=== PATIENT | female | born 1960 | race Caucasian/White ===

== ENCOUNTER 2023-05-19 16:16 | Inpatient (IN) | payer BC, SELFPAY ==
--- NOTE | 2023-05-19 | ECG_ITS ---
Test Reason : ?STROKE Blood Pressure : / mmHG Vent. Rate : 086 BPM Atrial Rate : 086 BPM P-R Int : 164 ms QRS Dur : 082 ms QT Int : 366 ms P-R-T Axes : 063 018 041 degrees QTc Int : 437 ms Normal sinus rhythm Possible Left atrial enlargement Borderline ECG No previous ECGs available Referred By: Damon Wick Electronically Signed By:TADEO NAYAK MD
--- NOTE | 2023-05-19 | EEG_ITS ---
FINDINGS: Waking background activity consists of a low-voltage 9 to 10 hertz posterior alpha frequency intermixed anteriorly with low voltage fast frequencies. Photic stimulation and hyperventilation are without activation. No sleep stages are identified. No focal, lateralizing, or paroxysmal discharges were seen. IMPRESSION: This waking EEG is within normal limits. MD LUCÍA Trammell/CHIDI / [id number]
--- NOTE | ~2023-05-19 | CT_ITS ---
EXAMINATION: CT HEAD WITHOUT CONTRAST (STROKE PROTOCOL) CLINICAL INFORMATION: Aphasia. COMPARISON: None. TECHNIQUE: Contiguous axial imaging was performed from the skull base to vertex without intravenous administration of contrast. Coronal and sagittal reformatted images are performed at the CT scanner. [This CT examination was performed using dose optimization techniques as appropriate, variously including the following: *Automated exposure control *Adjustment of mA and/or kV according to patient size (this includes techniques or standardized protocols for targeted exams where dose is matched to indication/reason for exam; i.e. extremities or head) *Use of iterative reconstruction technique] DLP: 583 mGy-cm. FINDINGS: There is enlarged and vessel. The left extra-axial space along the sylvian fissure extending into the medial temporal lobe inferiorly. Findings concerning for a vascular lesion. This can be further assessed with pre and post MRI and MRA/MRV brain imaging. No mass effect. No extra-axial collection. No intracranial hemorrhage. No hydrocephalus. There is no osseous abnormality. The mastoid air cells and visualized portions of the paranasal sinuses are well-aerated. CT/CT head for stroke IMPRESSION: 1. No acute intracranial abnormality. 2. Enlarged vessel in the left extra-axial space along the Sylvian fissure extending into the medial temporal lobe inferiorly. Findings concerning for a vascular lesion. This can be further assessed with pre and post MRI and MRA/MRV brain imaging. This critical result was discussed with Dr. Wick at 1656 hours on 05/19/2023. It was ascertained that the content and urgency of the report was understood at the time of direct communication.
--- NOTE | ~2023-05-19 | CT_ITS ---
EXAMINATION: CT CERVICAL SPINE WITHOUT CONTRAST CLINICAL INFORMATION: Trauma. COMPARISON: None available. TECHNIQUE: Axial images obtained through the cervical spine. Coronal and sagittal reformatted images are scattered This CT examination was performed using dose optimization techniques as appropriate, variously including the following: *Automated exposure control *Adjustment of mA and/or kV according to patient size (this includes techniques or standardized protocols for targeted exams where dose is matched to indication/reason for exam; i.e. extremities or head) *Use of iterative reconstruction technique DLP: 459 mGy-cm FINDINGS: No acute abnormality. There is no fracture, no dislocation and no prevertebral soft tissue swelling. Multilevel degenerative spondylosis spine. Cervical disc height narrowing and facet joint arthrosis. There is fusion of the facet joints bilaterally at the C2-C4 disc levels. CT/CT cervical spine wo IV con IMPRESSION: 1. No acute abnormality. 2. Degenerative spondylosis of cervical spine. Fleischner guidelines were followed.
--- NOTE | ~2023-05-19 | XR_ITS ---
EXAMINATION: XR CHEST CLINICAL INFORMATION: SOB COMPARISON: None available. TECHNIQUE: Frontal view of the chest was obtained. FINDINGS: No significant abnormality is noted involving the heart, lungs, mediastinum, bony thorax or soft tissues. XR/XR chest 1V IMPRESSION: Unremarkable chest examination.
--- NOTE | ~2023-05-19 | CT_ITS ---
EXAMINATION: CT ANGIOGRAM HEAD CT ANGIOGRAM NECK CLINICAL INFORMATION: Left hemispheric arteriovenous malformation. COMPARISON: CT head and cervical spine from 05/19/2023. TECHNIQUE: Initial noncontrast branch credit counselor imaging of the head and neck was performed. Comparison is made with noncontrast head CT from earlier today. Test bolus sequences followed by intravenous administration 70 mL of Omnipaque 350. Helical imaging was performed in the axial plane from the aortic arch to the skull vertex. Delayed postcontrast imaging of the head was also performed. The data was processed at the lab technologist's workstation for generation of MIP sequences. Angled MIPs and volume rendered reformatted images were also generated at an offline 3D workstation. Stenoses are assessed in accordance with NASCET criteria unless otherwise indicated. This CT examination was performed using dose optimization techniques as appropriate, variously including the following: *Automated exposure control. *Adjustment of mA and/or kV according to patient size (this includes techniques or standardized protocols for targeted exams where dose is matched to indication/reason for exam; i.e. extremities or head). *Use of iterative reconstruction technique. DLP: 1342 mGy-cm FINDINGS: CT Head: There is a tangle of irregular vasculature centered on the anterior left mesial temporal lobe and deep nuclei, measuring approximately 2.7 x 2.9 x 1.9 cm. The nidus appears largely to be fed by branches of the left posterior communicating artery and potentially the left MCA. Irregular ectatic venous structures within this nidus, measure up to 1.2 cm in diameter. Ectatic draining venous structures are noted in the suprasellar cistern and along the left cerebral hemisphere. There is no evidence of acute intracranial hemorrhage or edematous territorial infarction. Woodruff-white matter differentiation is preserved. A few foci of hypoattenuation in the periventricular and deep white matter are consistent with mild microangiopathy. The ventricles are normal in morphology and size. No evidence for obstructive hydrocephalus. No abnormal mass effect or midline shift. No extra-axial fluid collections. No pathologic intra-axial enhancement or regional oligemia. No acute soft tissue or osseous abnormalities. Moderate mucosal thickening of the paranasal sinuses. Moderate leftward nasal septal deviation with spurring. The mastoid air cells and middle ear cavities are clear. Multifocal odontogenic enamel erosions. CT Neck: There is a 0.4 cm hyperattenuating nodule in the right thyroid lobe (no follow-up imaging recommended based on current guidelines at the time of examination). The remaining cervical soft tissues are within normal limits. Straightening of the normal cervical lordosis. Ankylosis of C2-C4. Mild degenerative anterolisthesis of C3 on C4. Advanced degenerative disc disease from C4-C7. Facet and uncovertebral joint arthropathy leads to osseous encroachment on the neural foramina from C3-C7. CT Upper Chest: The visualized lung apices and upper mediastinum are within normal limits. Neck CTA: Aortic Arch: Normal contour and caliber. Classic 3 vessel branching pattern of the aortic arch. Great Vessel Origins: No significant stenosis of the branch origins. Right Common Carotid Artery: No focal stenosis or occlusion. Cervical Right Internal Carotid Artery: Normal opacification without focal stenosis or occlusion. Left Common Carotid Artery: No focal stenosis or occlusion. Cervical Left Internal Carotid Artery: Normal opacification without focal stenosis or occlusion. Cervical Right Vertebral Artery: Co-dominant. No focal stenosis or occlusion. Cervical Left Vertebral Artery: Co-dominant. No focal stenosis or occlusion. Brain CTA: Intracranial Internal Carotid Arteries: No focal stenosis or occlusion. Right Anterior Cerebral Artery: Normal A1 segment. Normal opacification of the distal CARLOS segments. Left Anterior Cerebral Artery: The A1 segment is diminutive. Normal opacification of the distal CARLOS segments. Anterior Communicating Artery: Normal. Right Middle Cerebral Artery: Normal M1 segment of the MCA without focal stenosis or occlusion. Normal arborization of the distal segments. Left Middle Cerebral Artery: Normal M1 segment of the MCA without focal stenosis or occlusion. Normal arborization of the distal segments. Right Vertebral Artery: Normal V4 segment. Normal opacification of the proximal segments of the posterior inferior cerebellar artery. Left Vertebral Artery: Normal V4 segment. Normal opacification of the proximal segments of the posterior inferior cerebellar artery. Basilar Artery: Normal without focal stenosis or occlusion. Normal appearance of the proximal superior cerebellar arteries. Right Posterior Cerebral Artery: Normal P1 segment. Normal opacification of the distal HEEL SORTER segments. Left Posterior Cerebral Artery: Normal P1 segment. Prominent posterior communicating artery with branch vessels that appear to feed the aforementioned left-sided AVM. Normal opacification of the distal HEEL SORTER segments. Normal opacification of the superior sagittal, straight, transverse, and sigmoid sinuses. Ectasia of the left superior ophthalmic vein. CT/CT angio head neck IMPRESSION: 1. There is a prominent arteriovenous malformation centered on the anterior left temporal lobe and deep nuclei with nidus measuring up to 2.9 cm. The nidus appears largely to be fed by branches of the left posterior communicating artery and potentially the left MCA. Irregular ectatic venous structures within this nidus measure up to 1.2 cm in diameter. 2. No evidence of acute intracranial hemorrhage or edematous territorial infarction. Mild underlying microangiopathy. 3. CTA of the head and neck without proximal occlusion or flow-limiting stenosis.
--- NOTE | 2023-05-19 16:26 | ED.NEUROSD ---
HPI - Neuro Symptoms/Deficit General Chief Complaint: Stroke Stated Complaint: SEIZURE, STROKE ALERT Time Seen by Provider: 05/19/23 16:23 Source: EMS Mode of arrival: EMS Limitations: altered mental status History of Present Illness HPI Narrative: This is 62 years old female brought in by ambulance with altered mental status, per ambulance personnel the patient was at [employer] and she had witnessed seizure and became confused and post ictal. Patient arrives awake and alert, with a C-collar. Postictal she is unable to give any history we had no prior record of this patient at [facility], no family members available at this time Onset (ago): hour(s) (1) Location: speech Relieving factors: none Related Data Home Medications Medication Instructions Recorded Confirmed No Known Home Meds 05/19/23 05/19/23 Allergies Allergy/AdvReac Type Severity Reaction Status Date / Time Unable to Assess Allergy Verified 05/19/23 16:23 Review of Systems Review of Systems: Yes Unobtainable due to [facility] condition [facility] Past [facility] History [facility] Narrative: unknown PMX Social History Social History Alcohol intake: never Smoked in Last 30 Days: No Use of substances other than those prescribed or required for medical reasons: No Advance Directives: No Advance Directives Information Provided: Yes Patient : No Physical Exam Vital Signs: Vital Signs: Last Vital Signs Temp 98.4 F 05/19/23 16:52 Pulse 79 05/19/23 18:08 Resp 20 05/19/23 18:08 BP 141/68 H 05/19/23 18:08 Pulse Ox 97 05/19/23 18:08 O2 Del Method Room Air 05/19/23 18:08 BMI result Body Mass Index 24.4 She is awake alert in not acute distress Const: General: comfortable, no acute distress, well developed and awake Nutritional Appearance: average body habitus Orientation/consciousness: Other orientation findings (She is disoriented to place and time) HEENT: Head: Yes normal to inspection General nose exam: Normal external nose present Face and sinus: Yes normal facial exam Mouth: Normal oral and palatal mucosa present Neck: Neck: Yes normal visual inspection, Yes full ROM and Yes no lymphadenopathy Chest: Chest palpation & inspection: normal inspection of the chest Resp: Effort & Inspection: normal respiratory effort Auscultation: clear to auscultation bilaterally Cardio: Jugular venous distension: no JVD Rate: regular rate Rhythm: regular rhythm GI: Inspection: Yes normal to inspection Palpation (GI): Soft to palpation, not firm, nontender and no guarding Percussion: Yes normal to percussion Auscultation: normal bowel sounds Skin: General skin exam: no rashes or lesions noted Lesions: no lesions Rashes: no rashes Neuro: Other: Awake and alert him will the extremity speech is clear she is disoriented x3 General: moves all extremities Course Reevaluation(s) Reevaluation #1: more awake alert,spoke with sister Tatiana who inform me that the pt had hx of cerebral aneurism at 17 yo Reevaluation #2: Spoke with Neurologist Dr Bazan Time: 17:40 Medications Administered Discontinued Medications Generic Name Dose Route Start Last Admin Trade Name Freq PRN Reason Stop Dose Admin Sodium Chloride 1,000 mls @ 999 mls/hr 05/19/23 16:30 05/19/23 17:57 Ns IVCONT 05/19/23 17:30 Infused .Q1H1M NELSON Infusion Levetiracetam 1,500 mg 05/19/23 18:00 05/19/23 18:12 Levetiracetam In Nacl (Iso-Os) 1,500 Mg/100 Ml Piggyback IV 05/19/23 18:01 1,500 mg ONCE ONE Administration Medical Decision Making Medical Decision Making [facility] Narrative: Patient presented with altered mental status a witnessed seizure most likely this is a postictal status she is cleaning up at this point will do a head CT labs and reassess Differential Diagnosis Differential Diagnoses: The differential diagnosis associated with the presentation includes CVA/seizure/intracranial bleed Admission/Observation Consideration of admission/observation: Escalation of care including admission/observation considered Consult Healthcare Provider Management of the patient was discussed with: Hospitalist and Food Service Spoke with neurologist Dr Bazan Lab Data [facility] Lab Attestation statement: I reviewed the patient's lab results. 05/19/23 16:38 05/19/23 16:38 Labs: Lab Results 05/19/23 05/19/23 05/19/23 Range/Units 16:36 16:38 16:38 WBC 7.8 (4.8-10.8) X10*3/uL RBC 4.27 (4.20-5.50) X10*6/uL Hgb 12.4 (12.0-16.0) g/dl Hct 36.8 L (37.0-47.0) % MCV 86.2 (80.0-98.0) fL MCH 29.0 (27.0-33.0) pg MCHC 33.7 (31.0-35.0) g/dl RDW 13.2 (11.0-16.0) % Plt Count 235 (160-400) X10*3/uL MPV 10.1 (9.4-12.3) fL Immature Gran % (Auto) 0.1 (0.0-0.4) % Neut % (Auto) 78.6 H (45-73) % Lymph % (Auto) 16.0 L (20-40) % [place] % (Auto) 4.7 (2-11) % Eos % (Auto) 0.1 (0-4) % Baso % (Auto) 0.5 (0-2) % Lymph # (Auto) 1.3 (1.2-4.9) X10*3/uL [place] # (Auto) 0.4 (0.1-1.2) X10*3/uL Eos # (Auto) 0.0 (0.0-0.4) X10*3/uL Baso # (Auto) 0.0 (0.0-0.2) X10*3/uL Abs Immat Gran (auto) 0.01 (0.00-0.03) X10*3/uL Absolute Neuts (auto) 6.2 (2.0-8.3) x10*3/uL Absolute Nucleated RBC 0.000 (0.0-0.012) X10*3/uL Nucleated RBC % (auto) 0.0 (0.0-0.2) /100WBC PT (10.0-13.1) SEC Whole Blood PT 13.5 (11.1-13.5) sec INR (0.9-1.1) Whole Blood INR 1.1 (0.9-1.1) APTT (26.0-36.4) SEC Sodium 138 (135-145) mmol/L Potassium 3.9 (3.3-5.1) mmol/L Chloride 104 (96-108) mmol/L Carbon Dioxide 26 (22-29) mmol/L Anion Gap 12 (12-20) BUN 25 H (9-16) mg/dL Creatinine 0.89 (0.5-1.4) mg/dL Estim Creat Clear Calc 65.2 Estimated GFR > 60 POC Glucose (60-115) mg/dL Random Glucose 117 H (60-115) mg/dL Calcium 9.3 (8.4-10.2) mg/dL Total Bilirubin 0.4 (0.0-1.0) mg/dL AST 24 (5-31) U/L ALT 17 (0-31) U/L Alkaline Phosphatase 85 (39-117) U/L Troponin I High Sens (<3.5-17.0) ng/L Total Protein 7.2 (6.5-8.0) g/dL Albumin 4.0 (3.5-5.0) g/dL Ethyl Alcohol < 10 mg/dL 05/19/23 05/19/23 05/19/23 Range/Units 16:38 16:38 16:47 WBC (4.8-10.8) X10*3/uL RBC (4.20-5.50) X10*6/uL Hgb (12.0-16.0) g/dl Hct (37.0-47.0) % MCV (80.0-98.0) fL MCH (27.0-33.0) pg MCHC (31.0-35.0) g/dl RDW (11.0-16.0) % Plt Count (160-400) X10*3/uL MPV (9.4-12.3) fL Immature Gran % (Auto) (0.0-0.4) % Neut % (Auto) (45-73) % Lymph % (Auto) (20-40) % [place] % (Auto) (2-11) % Eos % (Auto) (0-4) % Baso % (Auto) (0-2) % Lymph # (Auto) (1.2-4.9) X10*3/uL [place] # (Auto) (0.1-1.2) X10*3/uL Eos # (Auto) (0.0-0.4) X10*3/uL Baso # (Auto) (0.0-0.2) X10*3/uL Abs Immat Gran (auto) (0.00-0.03) X10*3/uL Absolute Neuts (auto) (2.0-8.3) x10*3/uL Absolute Nucleated RBC (0.0-0.012) X10*3/uL Nucleated RBC % (auto) (0.0-0.2) /100WBC PT 11.3 (10.0-13.1) SEC Whole Blood PT (11.1-13.5) sec INR 1.0 (0.9-1.1) Whole Blood INR (0.9-1.1) APTT 26.6 (26.0-36.4) SEC Sodium (135-145) mmol/L Potassium (3.3-5.1) mmol/L Chloride (96-108) mmol/L Carbon Dioxide (22-29) mmol/L Anion Gap (12-20) BUN (9-16) mg/dL Creatinine (0.5-1.4) mg/dL Estim Creat Clear Calc Estimated GFR POC Glucose 105 (60-115) mg/dL Random Glucose (60-115) mg/dL Calcium (8.4-10.2) mg/dL Total Bilirubin (0.0-1.0) mg/dL AST (5-31) U/L ALT (0-31) U/L Alkaline Phosphatase (39-117) U/L Troponin I High Sens 4.1 (<3.5-17.0) ng/L Total Protein (6.5-8.0) g/dL Albumin (3.5-5.0) g/dL Ethyl Alcohol mg/dL Independent Interpretation I performed an independent interpretation of an: CT Scan Interpretation: I reviewed interpreted the CT scan of the head as well Radiology Impression Discussion of test interpretation with radiology: I have reviewed the radiologist's reading. Independent Historian Clinical information obtained from an independent historian. History obtained from or confirmed by: Other (sister Tatiana) Tests considered The following testing was considered but not selected: MRI Critical Care Time Critical Care Time Critical Care Time: Yes Total Critical Care Time: 60 Attestation: Taking care of the patient, speaking with EMS pre-hospital and at arrival, speaking with the radiologist, speaking neurologist speaking with hospitalist and family members Discharge Plan Discharge Clinical Impression: Seizure Patient Disposition: Admitted As Inpatient
[2023-05-19 16:41] VITALS: BP 121/50; PULSE 100; O2SAT 94; BMI 24.4
[2023-05-19 16:46] LABS: MANUAL DIFF FLAG NO
[2023-05-19 16:50] LABS: Basophils Percent Auto 0.5 % (0-2); Eosinophils Percent Auto 0.1 % (0-4); Hematocrit 36.8 % (37.0-47.0); Hemoglobin 12.4 g/dl (12.0-16.0); Imm Gran Abs Auto 0.01 X10*3/uL (0.00-0.03); Imm Gran Pct Auto 0.1 % (0.0-0.4); Lymphocytes Absolute Auto 1.3 X10*3/uL (1.2-4.9); Mean Corpuscular HGB Conc 33.7 g/dl (31.0-35.0); Mean Corpuscular Volume 86.2 fL (80.0-98.0); Mean Platelet Volume 10.1 fL (9.4-12.3); Monocytes Absolute Auto 0.4 X10*3/uL (0.1-1.2); Monocytes Percent Auto 4.7 % (2-11); Neutrophils Absolute Auto 6.2 x10*3/uL (2.0-8.3); Neutrophils Percent Auto 78.6 % (45-73); Platelet Count 235 X10*3/uL (160-400); Red Blood Count 4.27 X10*6/uL (4.20-5.50); Red Cell Distribution Width 13.2 % (11.0-16.0); White Blood Count 7.8 X10*3/uL (4.8-10.8)
[2023-05-19 16:51] LABS: Glucose, Whole Blood 105 mg/dL (60-115)
[2023-05-19 16:52] VITALS: BP 120/73; PULSE 89; RESP 23; TEMP 36.9; O2SAT 94
[2023-05-19 16:53] LABS: Prothrombin Time Whole Bld POC 13.5 sec (11.1-13.5); ~PT, ~INR - Anti Coag Clinic 1.1 (0.9-1.1)
[2023-05-19] MEDS: 0.9 % Sodium Chloride 1,000 ML 999 ML IVCONT (16:54)
[2023-05-19 16:59] LABS: Prothrombin Time 11.3 SEC (10.0-13.1)
[2023-05-19 17:02] LABS: Partial Thromboplastin Time 26.6 SEC (26.0-36.4)
[2023-05-19 17:11] LABS: Troponin-I High Sensitivity 4.1 ng/L (<3.5-17.0)
[2023-05-19 17:15] LABS: Alanine Aminotransferase 17 U/L (0-31); Alkaline Phosphatase 85 U/L (39-117); Anion Gap 12 (12-20); Aspartate Amino Transferase 24 U/L (5-31); Bilirubin Total 0.4 mg/dL (0.0-1.0); Blood Urea Nitrogen 25 mg/dL (9-16); Calcium 9.3 mg/dL (8.4-10.2); Carbon Dioxide 26 mmol/L (22-29); Chloride 104 mmol/L (96-108); Creatinine Clr Calc Pharmacy 65.2; Estimated Glomerular Filt Rate > 60; Ethanol < 10 mg/dL; Glucose Random 117 mg/dL (60-115); Potassium 3.9 mmol/L (3.3-5.1); Sodium 138 mmol/L (135-145); Total Protein 7.2 g/dL (6.5-8.0)
--- NOTE | 2023-05-19 17:56 | P.HPHOSP_ITS ---
Agree with the findings assessment and plan of MAKAYLA. no onset seizure, started on Keppra . Neurology consulted History of Present Illness Date of Service: 05/19/23 Attending physician on admission: Alice Irving Chief Complaint: New onset seizure Pt is a 62-year-old female with a PMH significant for?cerebral hemorrhage at 17 years old who presents to the ED after a witnessed seizure. Pt was at [employer] when had the witnessed seizure. Pt states she may have had some li ghtheadedness but no other prodromal symptoms. Pt was post-ictal but currently back to baseline. States she feels well with no complaints. Denies headache, vision changes. No myalgias, musculoskeletal pain, tongue bite. Patient denies chest pain/pressure, palpitations. No shortness of breath. Denies fever, chills, nausea, vomiting, diarrhea, abdominal pain. Patient apparently has no other significant PMH besides her cerebral hemorrhage at age 17. Was in the hospital for 1 and half weeks then, hemorrhage was apparently so deep that no surgical intervention was indicated at that time. Patient with no additional PMH, not on any home medications. However patient states she has not seen a primary care and over 30 years. Patient denies a history of smoking, drinking, or illicit drug use. In the ED patient was afebrile but tachypneic up to 23. Labs were grossly unremarkable. Electrolytes WNL. Renal function WNL. Hepatic function WNL. Troponin 4.1. Random glucose 117. Ethyl alcohol <10. CXR showed no acute cardiopulmonary process. CT?of head demonstrated no acute acute cranial abnormality but showed enlarged vessel in the left extra-axial space along the Sylvian fissure concerning for a vascular lesion that could be further assessed with MRI. CT of cervical spine found no acute abnormality but showed degenerative spondylolysis. Pt was treated with the the Keppra 1500 mg and IVF. Pt will be admitted to the hospital under observation on telemetry for treatment and workup of new onset seizure. Review of Systems Review of Systems: New onset seizure Prodrome of lightheadedness Patient with no other acute medical complaints Yes all other systems are reviewed and are negative PMFSH Social History Alcohol intake: never Smoked in Last 30 Days: No Use of substances other than those prescribed or required for medical reasons: No Advance Directives: No Advance Directives Information Provided: Yes Patient : No Meds Allergies Allergy/AdvReac Type Severity Reaction Status Date / Time Unable to Assess Allergy Verified 05/19/23 16:23 Active Medications: Current Medications Pharmacy Consult (Consult Rx Perform Med Rec) 1 each MISCELLANE ONCE PRN PRN Reason: Consult order Home Medications Medication Instructions Recorded Confirmed Last Taken Type No Known Home Meds 05/19/23 05/19/23 Unknown History Physical Exam Vital Signs and Narrative: Vital Signs: Last Vital Signs Temp 98.4 F 05/19/23 16:52 Pulse 89 05/19/23 16:52 Resp 23 H 05/19/23 16:52 BP 120/73 05/19/23 16:52 Pulse Ox 94 05/19/23 16:52 O2 Del Method Room Air 05/19/23 16:52 BMI result Body Mass Index 24.4 Constitutional: Alert, in no acute distress. Mental Status: Oriented to person, place and time. Eyes: Pupils are equal, round, and reactive to light. Ear, Nose, and Throat: Oropharynx clear, mucous membranes moist. Ears and nose without deformities. Trachea midline. Respiratory: Clear to auscultation bilaterally. No wheezing, rales, or rhonchi. Cardiovascular: S1, S2 regular. No murmurs, rubs, or gallops. Gastrointestinal: Abdomen soft, non-tender, non-distended. Normal bowel sounds. Neurologic: Cranial nerves II-XII are grossly intact bilaterally. No focal neurological deficits. Moves all extremities spontaneously. Skin: No rashes or lesions noted. Musculoskeletal: No cyanosis or clubbing. Extremities: No edema. Psychiatric: Normal mood and affect. Results Labs 05/19/23 16:38 05/19/23 16:38 Labs: Laboratory Results - last 24 hr 05/19/23 05/19/23 05/19/23 16:36 16:38 16:38 MCV 86.2 MCH 29.0 MCHC 33.7 RDW 13.2 Plt Count 235 MPV 10.1 Immature Gran % (Auto) 0.1 Neut % (Auto) 78.6 H Lymph % (Auto) 16.0 L [place] % (Auto) 4.7 Eos % (Auto) 0.1 Baso % (Auto) 0.5 Lymph # (Auto) 1.3 [place] # (Auto) 0.4 Eos # (Auto) 0.0 Baso # (Auto) 0.0 Abs Immat Gran (auto) 0.01 Absolute Neuts (auto) 6.2 Absolute Nucleated RBC 0.000 Nucleated RBC % (auto) 0.0 PT Whole Blood PT 13.5 INR Whole Blood INR 1.1 APTT Anion Gap 12 Estim Creat Clear Calc 65.2 Estimated GFR > 60 POC Glucose Random Glucose 117 H Calcium 9.3 Total Bilirubin 0.4 AST 24 ALT 17 Alkaline Phosphatase 85 Troponin I High Sens Total Protein 7.2 Albumin 4.0 Ethyl Alcohol < 10 05/19/23 05/19/23 05/19/23 16:38 16:38 16:47 MCV MCH MCHC RDW Plt Count MPV Immature Gran % (Auto) Neut % (Auto) Lymph % (Auto) [place] % (Auto) Eos % (Auto) Baso % (Auto) Lymph # (Auto) [place] # (Auto) Eos # (Auto) Baso # (Auto) Abs Immat Gran (auto) Absolute Neuts (auto) Absolute Nucleated RBC Nucleated RBC % (auto) PT 11.3 Whole Blood PT INR 1.0 Whole Blood INR APTT 26.6 Anion Gap Estim Creat Clear Calc Estimated GFR POC Glucose 105 Random Glucose Calcium Total Bilirubin AST ALT Alkaline Phosphatase Troponin I High Sens 4.1 Total Protein Albumin Ethyl Alcohol Imaging Radiologist's Impressions: Impressions Head CT 05/19/23 16:27 IMPRESSION: 1. No acute intracranial abnormality. 2. Enlarged vessel in the left extra-axial space along the Sylvian fissure extending into the medial temporal lobe inferiorly. Findings concerning for a vascular lesion. This can be further assessed with pre and post MRI and MRA/MRV brain imaging. This critical result was discussed with Dr. Wick at 1656 hours on 05/19/2023. It was ascertained that the content and urgency of the report was understood at the time of direct communication. Cervical Spine CT 05/19/23 16:39 IMPRESSION: 1. No acute abnormality. 2. Degenerative spondylosis of cervical spine. Fleischner guidelines were followed. Assessment and Plan (1) Seizure: Status: Acute (2) Abnormal CT of brain: Status: Acute Plan Pt is a 62-year-old female with a PMH significant for?cerebral hemorrhage at 17 years old who presents to the ED after a witnessed seizure. Pt was at [employer] when had the witnessed seizure. Pt states she may have had some lightheadedness but no other prodromal symptoms. Pt was post-ictal but currently back to baseline. States she feels well with no complaints. Pt will be admitted to the hospital under observation on telemetry for treatment and workup of new onset seizure. New onset seizure Patient with history of cerebral hemorrhage at 17 years of age, no intervention taken at that time Patient not on any home medications, no history of seizures, electrolytes normal, POC 105 CT of head negative for acute intracranial pathology, did find enlarged vessel in the left extra-axial space concerning for vascular lesion Patient was loaded with 1500 mg of Keppra in the ED Will give Keppra 500 mg b.i.d. Will get EEG Will get MRI of brain w/wo contrast Check magnesium, urine tox screen Neurology consult Seizure and aspiration precautions Monitor on telemetry Full Code Attending:?Dr. Irving DVT Prophylaxis: Pt ambulatory Pt will be admitted to the hospital under observation on telemetry for treatment and further evaluation of new onset seizure. Time Spent With Patient Time: Total time managing care of this patient today ____ minutes. Quality Stroke Does the patient have a stroke diagnosis?: No VTE Prior VTE?: No VTE Risk Level:: Medical - moderate - high VTE Device Contraindication: Treatment Not Indicated VTE Drug Contraindication: Treatment Not Indicated
[2023-05-19 18:08] VITALS: BP 141/68; PULSE 79; RESP 20; O2SAT 97
--- NOTE | 2023-05-19 18:08 | PHA.MEDREC ---
Pharmacy Consult ? Medication Reconciliation Pharmacy has completed the medication reconciliation. Spoke to patient's sister Tatiana to confirm meds. Patient takes no meds.
[2023-05-19] MEDS: levETIRAcetam in NaCl (iso-os) 1,500 MG/100 ML PIGGYBACK 1500 MG IV (18:12)
[2023-05-19 19:44] VITALS: BP 132/72; PULSE 78; RESP 20; TEMP 37; O2SAT 97
--- NOTE | 2023-05-19 19:47 | PC.NURSE ---
Assumed care for pt. Pt aox4 resting at the bedside. No apparent distress noted. VSS. Passed nursing swallow screen with no complications or difficulty. No aspiration noted. Family at bedside. Pending admit orders. Pt aware of plan of care.
--- NOTE | 2023-05-19 19:49 | PC.NURSE ---
Pt is unable to provide a urine sample at this time.
[2023-05-19 19:57] LABS: Magnesium 2.1 mg/dL (1.6-2.6)
--- NOTE | 2023-05-19 21:03 | PC.NURSE ---
Pt able to ambulate to the restroom with no difficulty and a steady gait. Urine sample provided and sent.
[2023-05-19 21:19] LABS: Amphetamine Screen Urine Not Detected (Not Detect); Barbiturates, Urine Not Detected (Not Detect); Benzodiazepines Screen Urine Not Detected (Not Detect); Cannabinoid Screen Urine Not Detected (Not Detect); Cocaine Screen Urine Not Detected (Not Detect); Fentanyl, urine Not Detected (Not Detect); Opiate Screen Urine Not Detected (Not Detect); Phencyclidine Screen Urine Not Detected (Not Detect)
--- NOTE | 2023-05-19 21:19 | PC.NURSE ---
MRI form completed and faxed to MRI dept.
[2023-05-20] VITALS (7 sets, daily range): BP systolic 117–138; BP diastolic 63–79; PULSE 57–69; RESP 14–20; TEMP 36.1–36.8; O2SAT 94–98; BMI 23.5
--- NOTE | 2023-05-20 00:12 | PC.NURSE ---
Nursing report given to HARVINDER Horvath. Pt being transferred to [facility] and aware of plan of care.
[2023-05-20] MEDS: 0.9 % Sodium Chloride Flush 3 ML SYRINGE IVFLUSH ×3 (01:01→14:48)
--- NOTE | 2023-05-20 06:41 | PC.NURSE ---
Pt admitted from ED via stretcher. Standby assist to bed. A&Ox4, cooperative with care. Seizure precautions in place. NSR on hospital monitor. Bed alarm on. Call amaya within reach.
[2023-05-20] MEDS: levETIRAcetam 500 MG TABLET PO ×2 (08:41→20:53)
--- NOTE | 2023-05-20 09:24 | MHC.CM.PN ---
SAMI 05/20/23, EMR REVIEWED, PT W/NEW ONSET SEIZURE, CM MET W/PT WHO REPORTS SHE LIVES W/HER BROTHER, IS INDEP W/ALL CARE, DENIES USE OF DME/HOME SERVICES AND DENIES NEED. PT VERIFIES SHE DOES NOT HAVE A PCP AND DECLINES ASSISTANCE W/FINDING A PCP AND SETTING UP A FIRST APPT, PT STATES, MY SISTER HAS SOMEONE I CAN SEE . PT VERIFIES MODERNA X3 AND HCP IS SISTER ADRIAN CLEMENTS [phone], COPY REQUESTED. ANTIC D/C HOME NO SERVICES W/SISTER ADRIAN FOR TRANSPORT
--- NOTE | 2023-05-20 10:44 | P.CNNE_ITS ---
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 She did not have any recollection stating that she found herself down on the floor with people around her. She said that many years ago she was treated for intracerebral hemorrhage in had similar episode. She denied drinking alcohol, or use of any illicit drug, or starting any new medicine. She was not under stress. Review of Systems Review of Systems: No recent headache or cold or flu-like illness PMFSH Social History Social History Alcohol intake: never Patient Tobacco Use Status: Never used Tobacco Smoked in Last 30 Days: No Use of substances other than those prescribed or required for medical reasons: No Advance Directives: No Advance Directives Information Provided: Yes Nutrition Risks: No Nutritional Risk Patient : No service: No Meds Allergies Allergy/AdvReac Type Severity Reaction Status Date / Time Unable to Assess Allergy Verified 05/19/23 16:23 Active Medications: Current Medications Acetaminophen (Acetaminophen 325 Mg Tablet) 650 mg PO Q6H PRN PRN Reason: Pain, Mild (Pain Scale 1-3) Docusate Sodium (Docusate Sodium 100 Mg Capsule) 100 mg PO DAILY PRN PRN Reason: Constipation Levetiracetam (Levetiracetam 500 Mg Tablet) 500 mg PO BID [facility] Last Admin: 05/20/23 08:41 Dose: 500 mg Ondansetron HCl (Ondansetron Hcl 4 Mg/2 Ml Vial) 4 mg IVPUSH Q8H PRN PRN Reason: Nausea and Vomiting Pharmacy Consult (Consult Rx Perform Med Rec) 1 each MISCELLANE ONCE PRN PRN Reason: Consult order Sodium Chloride (0.9 % Sodium Chloride Flush 3 Ml Syringe) 3 ml IVFLUSH QSHIFT [facility] Last Admin: 05/20/23 08:41 Dose: 3 ml Home Medications Medication Instructions Recorded Confirmed Last Taken Type No Known Home Meds 05/19/23 05/19/23 Unknown History Physical Exam Vital Signs: Vital Signs: Last Vital Signs Temp 97.0 F 05/20/23 07:49 Pulse 58 05/20/23 07:49 Resp 20 05/20/23 07:49 BP 123/69 05/20/23 07:49 Pulse Ox 94 05/20/23 07:49 O2 Del Method Room Air 05/20/23 07:49 BMI result Body Mass Index 23.5 Neuro: Other: she is alert and awake, distraught, almost tearful, with normal spontaneity and fluency of speech and comprehension. Face is symmetrical. Visual gambino are full. There is no focal weakness. Deep tendon reflexes are trace to absent with flexor plantars. Results Labs 05/19/23 16:38 05/19/23 16:38 Labs: Short CBC 05/19/23 Range/Units 16:38 WBC 7.8 (4.8-10.8) X10*3/uL Hgb 12.4 (12.0-16.0) g/dl Hct 36.8 L (37.0-47.0) % Plt Count 235 (160-400) X10*3/uL BMP 05/19/23 16:38 Sodium 138 Potassium 3.9 Chloride 104 Carbon Dioxide 26 BUN 25 H Creatinine 0.89 Calcium 9.3 Liver Function 05/19/23 Range/Units 16:38 Total Bilirubin 0.4 (0.0-1.0) mg/dL AST 24 (5-31) U/L ALT 17 (0-31) U/L Alkaline Phosphatase 85 (39-117) U/L Albumin 4.0 (3.5-5.0) g/dL Noncontrast head CT revealed a left hemispheric lesion suggestive of AVM. Assessment and Plan (1) Seizure: Status: Acute 62 years old woman who has a left hemispheric AVM and probably related gen eralized seizure. At this time she had no recollection of this event and was somewhat postictal. My recommendation is to treat her with levetiracetam 500 mg twice a day and obtain as CTA of brain to define this vascular lesion. She should be advised to not drive and not be involved in activity that could put her life in danger such as swimming alone or sitting in soaking tub alone. Otherwise, once she would be taking medicine regular basis, she could work in her line of work. Time Spent With Patient Time: Total time managing care of this patient today ____ minutes. Procedures Date of Service Date of Service: 05/20/23
--- NOTE | 2023-05-20 14:21 | HO.PM.IMPN ---
Subjective Subjective Date of Service: 05/20/23 Interval History: Patient resting in bed, awake alert, offers no acute complaints, no recurrent seizures since admission, denies weakness no headache,no dizziness, no visual symptoms, denies nausea vomiting, no urinary symptoms of urgency or frequency. Review of Systems All other system reviewed and negative. Physical Exam Vital Signs: Vital Signs: Last Vital Signs Temp 97.7 F 05/20/23 11:39 Pulse 69 05/20/23 11:39 Resp 20 05/20/23 11:39 BP 138/69 05/20/23 11:39 Pulse Ox 98 05/20/23 11:39 O2 Del Method Room Air 05/20/23 11:39 BMI result Body Mass Index 23.5 Const: Other: General resting comfortably in no acute distress. Neck supple no JVD. CVS regular rate rhythm, Respiratory lungs clear to auscultation, no respiratory distress, no wheeze, no rhonchi. Gastrointestinal abdomen soft, nontender, bowel sounds audible, no guarding , no rigidity. Extremities no edema. Neuro nonfocal . Skin no rash Psych appropriate affect. Objective Data Active Medications Acetaminophen (Acetaminophen 325 Mg Tablet) 650 mg PO Q6H PRN PRN Reason: Pain, Mild (Pain Scale 1-3) Docusate Sodium (Docusate Sodium 100 Mg Capsule) 100 mg PO DAILY PRN PRN Reason: Constipation Levetiracetam (Levetiracetam 500 Mg Tablet) 500 mg PO BID [facility] Last Admin: 05/20/23 08:41 Dose: 500 mg Documented By: OLEG Ondansetron HCl (Ondansetron Hcl 4 Mg/2 Ml Vial) 4 mg IVPUSH Q8H PRN PRN Reason: Nausea and Vomiting Pharmacy Consult (Consult Rx Perform Med Rec) 1 each MISCELLANE ONCE PRN PRN Reason: Consult order Sodium Chloride (0.9 % Sodium Chloride Flush 3 Ml Syringe) 3 ml IVFLUSH QSHIFT [facility] Last Admin: 05/20/23 08:41 Dose: 3 ml Documented By: OLEG Labs 05/19/23 16:38 05/19/23 16:38 Labs: Laboratory Results - last 24 hr 05/19/23 05/19/23 05/19/23 16:36 16:38 16:38 MCV 86.2 MCH 29.0 MCHC 33.7 RDW 13.2 Plt Count 235 MPV 10.1 Immature Gran % (Auto) 0.1 Neut % (Auto) 78.6 H Lymph % (Auto) 16.0 L Kleberg % (Auto) 4.7 Eos % (Auto) 0.1 Baso % (Auto) 0.5 Lymph # (Auto) 1.3 Kleberg # (Auto) 0.4 Eos # (Auto) 0.0 Baso # (Auto) 0.0 Abs Immat Gran (auto) 0.01 Absolute Neuts (auto) 6.2 Absolute Nucleated RBC 0.000 Nucleated RBC % (auto) 0.0 PT Whole Blood PT 13.5 INR Whole Blood INR 1.1 APTT Anion Gap 12 Estim Creat Clear Calc 65.2 Estimated GFR > 60 POC Glucose Random Glucose 117 H Calcium 9.3 Magnesium 2.1 Total Bilirubin 0.4 AST 24 ALT 17 Alkaline Phosphatase 85 Troponin I High Sens Total Protein 7.2 Albumin 4.0 Urine Opiates Screen Urine Fentanyl Screen Ur Barbiturates Screen Ur Phencyclidine Scrn Ur Amphetamines Screen U Benzodiazepines Scrn Urine Cocaine Screen U Marijuana (THC) Screen Ethyl Alcohol < 10 05/19/23 05/19/23 05/19/23 16:38 16:38 16:47 MCV MCH MCHC RDW Plt Count MPV Immature Gran % (Auto) Neut % (Auto) Lymph % (Auto) Kleberg % (Auto) Eos % (Auto) Baso % (Auto) Lymph # (Auto) Kleberg # (Auto) Eos # (Auto) Baso # (Auto) Abs Immat Gran (auto) Absolute Neuts (auto) Absolute Nucleated RBC Nucleated RBC % (auto) PT 11.3 Whole Blood PT INR 1.0 Whole Blood INR APTT 26.6 Anion Gap Estim Creat Clear Calc Estimated GFR POC Glucose 105 Random Glucose Calcium Magnesium Total Bilirubin AST ALT Alkaline Phosphatase Troponin I High Sens 4.1 Total Protein Albumin Urine Opiates Screen Urine Fentanyl Screen Ur Barbiturates Screen Ur Phencyclidine Scrn Ur Amphetamines Screen U Benzodiazepines Scrn Urine Cocaine Screen U Marijuana (THC) Screen Ethyl Alcohol 05/19/23 21:02 MCV MCH MCHC RDW Plt Count MPV Immature Gran % (Auto) Neut % (Auto) Lymph % (Auto) Kleberg % (Auto) Eos % (Auto) Baso % (Auto) Lymph # (Auto) Kleberg # (Auto) Eos # (Auto) Baso # (Auto) Abs Immat Gran (auto) Absolute Neuts (auto) Absolute Nucleated RBC Nucleated RBC % (auto) PT Whole Blood PT INR Whole Blood INR APTT Anion Gap Estim Creat Clear Calc Estimated GFR POC Glucose Random Glucose Calcium Magnesium Total Bilirubin AST ALT Alkaline Phosphatase Troponin I High Sens Total Protein Albumin Urine Opiates Screen Not Detected Urine Fentanyl Screen Not Detected Ur Barbiturates Screen Not Detected Ur Phencyclidine Scrn Not Detected Ur Amphetamines Screen Not Detected U Benzodiazepines Scrn Not Detected Urine Cocaine Screen Not Detected U Marijuana (THC) Screen Not Detected Ethyl Alcohol Assessment and Plan (1) Seizure: Status: Acute (2) Abnormal CT of brain: Status: Acute Plan 62-year-old female with a PMH significant for?cerebral hemorrhage at 17 years old who presents to the ED after a witnessed seizure. Pt was at [employer] when had the witnessed seizure. Pt states she may have had some lightheadedness but no other prodromal symptoms. Pt was post-ictal but currently back to baseline. States she feels well with no complaints. Pt will be admitted to the hospital under observation on telemetry for treatment and workup of new onset seizure. New onset seizure No recurrent seizures, normal neuro exam Patient with history of cerebral hemorrhage at 17 years of age, no intervention taken at that time not on any home medications, no history of seizures, electrolytes normal, POC 105, U tox screen negative CT of head negative for acute intracranial pathology, did find enlarged vessel in the left extra-axial space concerning for vascular lesion s/p 1500 mg of iv Keppra in the ED, continue Keppra 500 mg b.i.d. Seen by Dr. Langston he agrees with Keppra and recommend CTA head to follow-up on left-sided AVM Continue Seizure and aspiration precautions, follow EEG report Full Code DVT Prophylaxis: Early ambulation Pt. will need continued inpatient hospitalization for further imaging studies to look in to left-sided AVM as per neuro recommendation. Time Spent With Patient Time: Total time managing care of this patient today ____ minutes. Quality Stroke Does the patient have a stroke diagnosis?: No VTE Prior VTE?: No VTE Risk Level:: Medical - moderate - high VTE Device Contraindication: Treatment Not Indicated VTE Drug Contraindication: Treatment Not Indicated
[2023-05-20] MEDS: iohexoL 350 MG/ML 100 ML INFUS..BTL IV (18:03)
[2023-05-21] MEDS: 0.9 % Sodium Chloride Flush 3 ML SYRINGE IVFLUSH ×2 (00:30→08:15)
[2023-05-21 03:31] VITALS: BP 117/58; PULSE 67; RESP 18; TEMP 36.2; O2SAT 98
[2023-05-21 08:00] VITALS: BP 115/63; PULSE 65; RESP 20; TEMP 36.7; O2SAT 95
[2023-05-21] MEDS: levETIRAcetam 500 MG TABLET PO (08:14)
--- NOTE | 2023-05-21 09:40 | P.DS_ITS ---
DS: Providers Provider Date of Service: 05/21/23 Date of admission: 05/20/23 12:04 Primary care physician: None Physician Consults: 05/19/23 19:34 Consult to Neurology Routine Consulting Provider: [facility] Reason for consultation: New onset seizure DS: Diagnosis Discharge Diagnosis (1) Seizure: Status: Acute (2) Abnormal CT of brain: Status: Acute DS: Summary Hospital Course Hospital Course: Date of Service: 05/19/23 Attending physician on admission: Alice Irving Chief Complaint: New onset seizure Pt is a 62-year-old female with a PMH significant for?cerebral hemorrhage at 17 years old who presents to the ED after a witnessed seizure. Pt was at [employer] when had the witnessed seizure. Pt states she may have had some lightheadedness but no other prodromal symptoms. Pt was post-ictal but currently back to baseline. States she feels well with no complaints.? Denies headache, vision changes.? No myalgias, musculoskeletal pain, tongue bite.? Patient denies chest pain/pressure, palpitations.? No shortness of breath.? Denies fever, chills, nausea, vomiting, diarrhea, abdominal pain.? Patient apparently has no other significant PMH besides her cerebral hemorrhage at age 17.? Was in the hospital for 1 and half weeks then, hemorrhage was apparently so deep that no surgical intervention was indicated at that time.? Patient with no additional PMH, not on any home medications.? However patient states she has not seen a primary care and over 30 years.? Patient denies a history of smoking, drinking, or illicit drug use. In the ED patient was afebrile but tachypneic up to 23. Labs were grossly unremarkable.? Electrolytes WNL.? Renal function WNL.? Hepatic function WNL.? Troponin 4.1.? Random glucose 117. Ethyl alcohol <10. CXR showed no acute cardiopulmonary process. CT?of head demonstrated no acute acute cranial abnormality but showed enlarged vessel in the left extra-axial space along the Sylvian fissure concerning for a vascular lesion that could be further assessed with MRI.? CT of cervical spine found no acute abnormality but showed degenerative spondylolysis. Pt was treated with the the Keppra 1500 mg and IVF. Pt will be admitted to the hospital under observation on telemetry for treatment and workup of new onset seizure. Hospital course: 62-year-old female with a PMH significant for?cerebral hemorrhage at 17 years old who presents to the ED after a witnessed seizure. Pt was at [employer] when had the witnessed seizure. Pt states she may have had some lightheadedness but no other prodromal symptoms. Pt was post-ictal but currently back to baseline. States she feels well with no complaints. Pt will be admitted to the hospital under observation on telemetry for treatment and workup of new onset seizure. New onset seizure, admitted to medical floor placed on Keppra 500 mg b.i.d.,,No recurrent seizures, noted to have normal electrolytes, blood sugars, U tox screen negative,CT of head negative for acute intracranial pathology, but showed enlarged vessel in the left extra-axial space concerning for vascular lesion,seen by Dr. Langston he agrees with Keppra and recommend CTA head to follow-up on left-sided AVM, CTA showed prominent arteriovenous malformation on the anterior left temporal lobe and deep nuclei measuring 2.9 cm, no intervention recommended, case discussed with Dr. Langston he recommend outpatient neuro follow-up, strongly recommend to avoid tub baths, no driving or operating machinery, informed patient and her sister regarding these limitations and CT findings. Time Spent with Patient Time attestation: Total time managing care of this patient today ____ minutes. Discharge coordination time: Greater than 30 minutes Quality: Safe Use of Opioids Does Pt have an Active Cancer Diagnosis on the Problem List?: No Quality: Stroke Does the patient have a stroke diagnosis?: No Physical Exam Vital Signs: Vital Signs: Last Vital Signs Temp 98.0 F 05/21/23 08:00 Pulse 65 05/21/23 08:00 Resp 20 05/21/23 08:00 BP 115/63 05/21/23 08:00 Pulse Ox 95 05/21/23 08:00 O2 Del Method Room Air 05/21/23 08:00 BMI result Body Mass Index 23.5 Const: Other: General resting comfortably in no acute distress.? Neck? supple no JVD. CVS? regular rate rhythm, Respiratory lungs clear to auscultation, no respiratory distress, no wheeze, no rhonchi. Gastrointestinal abdomen soft, nontender, bowel sounds audible, no guarding , no rigidity. Extremities no edema. Neuro nonfocal . Skin no rash Psych appropriate affect.? Discharge Plan Discharge Anticipated Discharge Date/Time: 05/21/23 09:37 Patient Disposition: Home, Self-Care Discharge Diagnosis: New onset seizure Referrals: Physician,None [Primary Care Provider] - 1 Week Discharge Medications: New levetiracetam 500 mg Tablet 500 mg PO BID Qty: 60 0RF Discharge Orders: Discharge Order (Routine); Ordered 05/21/23 Ordered By: Garett Centeno Diet: Advance to usual diet Activity on Discharge: no driving Stand Alone Forms: Patient Portal Discharge page, Work/School Release Care Plan Goals: New onset seizure continue Keppra, no driving, no operating machinery, no tub baths. Health Concerns: AV malformation Plan of Treatment: Outpatient follow-up with PCP Outpatient follow-up with neurologist Dr. Langston for follow-up on new onset seizure call for appointment Assessment: As above Discharge Date/Time: 05/21/23 10:44
--- NOTE | 2023-05-21 09:55 | MHC.CM.PN ---
Patient has been medically cleared for dc to home today, self care.
== END 2023-05-21 10:44 | disposition home or self-care (01) | DRG 53 ==
LOC: HO.ED 17:58 → HO.EDOVER 19:56 → HO.IMC 23:22
PROVIDERS: Admitting Provider Student in an Organized Health Care Education/Training Program; Emergency Provider Emergency Medicine; Visit Provider Hospitalist
DX: R56.9 Unspecified convulsions (principal); Q28.2 Arteriovenous malformation of cerebral vessels
CPT/HCPCS: 36415; 70450; 70496; 70498; 71045; 72125; 80053; 80307; 82947; 83735; 84484; 85025; 85610; 85730; 93005; 95816; 99285; J1953; Q9967

== ENCOUNTER → 2023-05-19 16:40 | Outpatient (BNV) | payer BC, SELFPAY | PROVIDERS: Admitting Provider Student in an Organized Health Care Education/Training Program; Emergency Provider Emergency Medicine; Visit Provider Internal Medicine Cardiovascular Disease | DX: I63.9 Cerebral infarction, unspecified (principal) | CPT/HCPCS: 93010 ==

== ENCOUNTER → 2023-05-20 12:04 | Outpatient (BNV) | payer BC, SELFPAY | PROVIDERS: Admitting Provider Student in an Organized Health Care Education/Training Program; Emergency Provider Emergency Medicine; Visit Provider Hospitalist | DX: R56.9 Unspecified convulsions (principal); R90.89 Other abnormal findings on diagnostic imaging of central nervous system | CPT/HCPCS: 99232; 99235; 99239 ==